=== PATIENT | male | born 1985 | race Hispanic/Latino ===

== ENCOUNTER 2018-08-20 08:43 | Inpatient (IN) | payer SELFPAY ==
[~2018-08-20] VITALS: Ht 190.5 cm; Wt 206.9 kg
[2018-08-20] MEDS ORDERED: SODIUM CHLORIDE 0.9% 1000ML 1,000 ML IV ONE (08:58)
[2018-08-20 09:07] LABS: BASOPHILS % (AUTO) 0.3 % (0.0-5.0); EOSINOPHILS % (AUTO) 0.1 % (0.0-8.0); HEMATOCRIT 44.8 % (42-54); LYMPHOCYTES % (AUTO) 5.1 % (21.0-51.0); MEAN CORPUSCULAR HEMOGLOBIN 31.5 pg (27.0-33.0); MEAN CORPUSCULAR HGB CONC 34.6 g/dL (32.0-36.0); MEAN CORPUSCULAR VOLUME 91.1 fL (79-99); MONOCYTES % (AUTO) 7.5 % (3.0-13.0); PLATELET COUNT (AUTO) 207 K/uL (130-400); RED BLOOD CELL COUNT(AUTO) 4.92 MIL/uL (4.50-6.20); RED CELL DISTRIBUTION WIDTH 13.9 % (11.0-15.5); WHITE BLOOD COUNT (AUTO) 16.5 K/uL (4.8-10.8)
[2018-08-20 09:15] LABS: CREATININE 1.1 mg/dL (0.5-1.5); POTASSIUM 3.6 mmol/L (3.5-5.1)
[2018-08-20 09:20] LABS: ALBUMIN 3.6 g/dL (3.5-5.0); BILIRUBIN,TOTAL 0.9 mg/dL (0.2-1.0); TOTAL PROTEIN, SERUM 7.9 g/dL (6.0-8.3)
[2018-08-20 09:22] LABS: INR 1.15 (0.85-1.15); PARTIAL THROMBOPLASTIN TIME 31.7 SEC (26.3-35.5)
[2018-08-20] MEDS ORDERED: IOHEXOL 350 MG/ML 100ML INFUS..BTL IV ONE (09:25)
[2018-08-20] MEDS ORDERED: AZITHROMYCIN 500MG+NS 250ML 250 ML IV ONE (09:33)
[2018-08-20] MEDS ORDERED: ACETAMINOPHEN EXTRA STRENGTH 500 MG TABLET ONE (09:57)
[2018-08-20 10:19] LABS: APPEARANCE,URINE Clear (CLEAR); BILIRUBIN,URINE Negative (NEGATIVE); COLOR,URINE Yellow (YELLOW); GLUCOSE, URINE (UA) Negative (NEGATIVE); KETONES,URINE Trace mg/dL (NEGATIVE); LEUKOCYTE ESTERASE ,URINE Trace (NEGATIVE); NITRATE,URINE Negative (NEGATIVE); OCCULT BLOOD,URINE Negative (NEGATIVE); PROTEIN,URINE Negative (NEGATIVE)
[2018-08-20 10:22] LABS: AMPHET/METH SCREEN,URINE NEGATIVE (NEGATIVE); BARBITURATE SCREEN, URINE NEGATIVE (NEGATIVE); BENZODIAZEPINES SCREEN,URINE NEGATIVE (NEGATIVE); CANNABINOID SCREEN,URINE NEGATIVE (NEGATIVE); COCAINE SCREEN,URINE NEGATIVE (NEGATIVE); OPIATE SCREEN,URINE NEGATIVE (NEGATIVE); PHENCYCLIDINE SCREEN,URINE NEGATIVE (NEGATIVE)
[2018-08-20 10:35] LABS: BACTERIA,URINE Rare /HPF (None Seen); MUCUS,URINE Rare LPF (None Seen); RBC,URINE None Seen /HPF (0-1); SQUAMOUS EPITHELIAL CELL,UR Rare /HPF (0-2); WBC,URINE 0-1 /HPF (0-1)
[2018-08-20] MEDS ORDERED: CEFTRIAXONE SODIUM 2 GM VIAL IVP SCH (11:30)
[2018-08-20] MEDS: INSULIN R PO SS1 SQ SCH ×3 (11:30→20:46)
[2018-08-20] MEDS ORDERED: MORPHINE SULFATE 2 MG/ML 1ML SYG IVP PRN (11:30)
[2018-08-20] MEDS ORDERED: LABETALOL HCL 5 MG/ML 20ML VIAL IV PRN (11:30)
[2018-08-20] MEDS ORDERED: ONDANSETRON HCL 4 MG/2 ML VIAL IVP PRN (11:30)
[2018-08-20] MEDS: SODIUM CHLORIDE 0.9% 1000ML 1,000 ML IV SCH ×2 (11:30→23:43)
[2018-08-20 12:30] VITALS: BP 119/70
[2018-08-20] MEDS: ACETAMINOPHEN 325 MG TAB PO PRN ×2 (14:07→22:09)
[2018-08-20] MEDS: LEVOFLOXACIN 750 MG/D5W 150 ML 150 ML IV SCH (16:21)
[2018-08-20 16:57] VITALS: BP 123/70
[2018-08-20] MEDS: HYDROCODONE/ACETAMINOPHEN 5/325 MG TAB PO PRN (17:26)
[2018-08-20 19:35] VITALS: BP 118/65
[2018-08-20] MEDS: ENOXAPARIN SODIUM 40 MG/0.4 ML SYRINGE SQ SCH (20:09)
[2018-08-20 23:39] VITALS: BP 120/59
[2018-08-21 04:02] VITALS: BP 103/62
[2018-08-21] MEDS: INSULIN R PO SS1 SQ SCH ×4 (05:44→20:28)
[2018-08-21] MEDS: HYDROCODONE/ACETAMINOPHEN 5/325 MG TAB PO PRN ×2 (05:57→16:20)
[2018-08-21 06:06] LABS: HEMATOCRIT 42.7 % (42-54); PLATELET COUNT (AUTO) 147 K/uL (130-400); RED CELL DISTRIBUTION WIDTH 14.2 % (11.0-15.5); WHITE BLOOD COUNT (AUTO) 10.1 K/uL (4.8-10.8)
[2018-08-21 06:17] LABS: POTASSIUM 3.3 mmol/L (3.5-5.1)
[2018-08-21 08:20] VITALS: BP 118/77
[2018-08-21] MEDS: PANTOPRAZOLE SODIUM 40 MG TABLET.DR PO SCH (09:28)
[2018-08-21] MEDS: ENOXAPARIN SODIUM 40 MG/0.4 ML SYRINGE SQ SCH ×2 (09:28→20:19)
[2018-08-21 11:55] VITALS: BP 128/69
[2018-08-21] MEDS: IPRATROPIUM/ALBUTEROL SULFATE 3 ML SOLUTION IH SCH ×3 (11:59→23:03)
[2018-08-21] MEDS: LEVOFLOXACIN 750 MG/D5W 150 ML 150 ML IV SCH (12:11)
[2018-08-21] MEDS ORDERED: COMPOUND IV REFRIGERATED 1 EACH IVSOLN MISC PRN (14:00)
[2018-08-21] MEDS ORDERED: VANCOMYCIN PROTOCOL PER PHARMACY IV SCH (14:00)
[2018-08-21] MEDS: ZOSYN 3.375GM+NS 50ML 50 ML IV SCH ×2 (14:21→21:57)
[2018-08-21] MEDS: VANCOMYCIN 2 GM in SODIUM CHLORIDE 0.9% 500ML 500 ML IV SCH ×2 (14:22→21:48)
[2018-08-21 16:44] VITALS: BP 136/71
[2018-08-21 20:00] VITALS: BP 135/73
[2018-08-22] VITALS: BP 122/68
[2018-08-22] MEDS: SODIUM CHLORIDE 0.9% 1000ML 1,000 ML IV SCH ×3 (00:08→15:23)
[2018-08-22] MEDS: HYDROCODONE/ACETAMINOPHEN 5/325 MG TAB PO PRN ×2 (00:08→10:42)
[2018-08-22 03:41] VITALS: BP 107/69
[2018-08-22 04:54] LABS: BASOPHILS % (AUTO) 0.9 % (0.0-5.0); EOSINOPHILS % (AUTO) 0.7 % (0.0-8.0); HEMATOCRIT 41.3 % (42-54); LYMPHOCYTES % (AUTO) 24.9 % (21.0-51.0); MEAN CORPUSCULAR HEMOGLOBIN 31.5 pg (27.0-33.0); MEAN CORPUSCULAR HGB CONC 34.6 g/dL (32.0-36.0); MEAN CORPUSCULAR VOLUME 90.9 fL (79-99); MONOCYTES % (AUTO) 13.1 % (3.0-13.0); NEUTROPHILS % (AUTO) 60.4 % (40.0-77.0); PLATELET COUNT (AUTO) 167 K/uL (130-400); RED BLOOD CELL COUNT(AUTO) 4.54 MIL/uL (4.50-6.20); RED CELL DISTRIBUTION WIDTH 14.3 % (11.0-15.5); WHITE BLOOD COUNT (AUTO) 7.4 K/uL (4.8-10.8)
[2018-08-22 05:02] LABS: HEMOGLOBIN A1C 5.9 % (4.0-6.0)
[2018-08-22 05:14] LABS: ALBUMIN 2.8 g/dL (3.5-5.0); BILIRUBIN,TOTAL 0.4 mg/dL (0.2-1.0); CREATININE 1.1 mg/dL (0.5-1.5); MAGNESIUM 1.9 mg/dL (1.80-2.40); PHOSPHORUS 3.1 mg/dL (2.5-4.9); POTASSIUM 3.5 mmol/L (3.5-5.1); THYROID STIMULATING HORMONE 2.04 uIU/mL (0.36-3.74); TOTAL PROTEIN, SERUM 6.9 g/dL (6.0-8.3)
[2018-08-22 05:16] LABS: INR 1.04 (0.85-1.15); PROTHROMBIN TIME 10.9 SEC (9.6-11.6)
[2018-08-22] MEDS: INSULIN R PO SS1 SQ SCH ×4 (05:46→21:00)
[2018-08-22] MEDS: ZOSYN 3.375GM+NS 50ML 50 ML IV SCH ×3 (05:50→21:10)
[2018-08-22] MEDS: IPRATROPIUM/ALBUTEROL SULFATE 3 ML SOLUTION IH SCH ×4 (06:01→23:17)
[2018-08-22 08:18] VITALS: BP 118/68
[2018-08-22] MEDS: ENOXAPARIN SODIUM 40 MG/0.4 ML SYRINGE SQ SCH ×2 (09:16→21:12)
[2018-08-22] MEDS: PANTOPRAZOLE SODIUM 40 MG TABLET.DR PO SCH (09:16)
[2018-08-22 12:29] VITALS: BP 133/75
[2018-08-22] MEDS: CLINDAMYCIN 600 MG/D5% WATER 50 ML IV SCH ×2 (13:15→21:10)
[2018-08-22] MEDS ORDERED: IOHEXOL 350 MG/ML 100ML INFUS..BTL IV ONE (14:25)
[2018-08-22] MEDS: ACETAMINOPHEN 325 MG TAB PO PRN (15:23)
[2018-08-22 17:09] VITALS: BP 134/66
[2018-08-22 20:00] VITALS: BP 132/74
[2018-08-23] VITALS (7 sets, daily range): BP systolic 116–122; BP diastolic 61–70
[2018-08-23] MEDS: CLINDAMYCIN 600 MG/D5% WATER 50 ML IV SCH ×3 (04:10→20:13)
[2018-08-23 04:39] LABS: EOSINOPHILS % (AUTO) 2.1 % (0.0-8.0); HEMATOCRIT 39.8 % (42-54); LYMPHOCYTES % (AUTO) 25.5 % (21.0-51.0); MEAN CORPUSCULAR VOLUME 91.3 fL (79-99); MONOCYTES % (AUTO) 13.5 % (3.0-13.0); NEUTROPHILS % (AUTO) 57.9 % (40.0-77.0); PLATELET COUNT (AUTO) 188 K/uL (130-400); RED BLOOD CELL COUNT(AUTO) 4.36 MIL/uL (4.50-6.20); RED CELL DISTRIBUTION WIDTH 14.2 % (11.0-15.5); WHITE BLOOD COUNT (AUTO) 6.2 K/uL (4.8-10.8)
[2018-08-23] MEDS: ZOSYN 3.375GM+NS 50ML 50 ML IV SCH ×3 (05:07→22:53)
[2018-08-23] MEDS: SODIUM CHLORIDE 0.9% 1000ML 1,000 ML IV SCH ×2 (05:07→18:39)
[2018-08-23 05:13] LABS: ALBUMIN 2.8 g/dL (3.5-5.0); BILIRUBIN,TOTAL 0.3 mg/dL (0.2-1.0); CREATININE 0.9 mg/dL (0.5-1.5); MAGNESIUM 2.1 mg/dL (1.80-2.40); PHOSPHORUS 3.6 mg/dL (2.5-4.9); POTASSIUM 3.8 mmol/L (3.5-5.1)
[2018-08-23] MEDS: INSULIN R PO SS1 SQ SCH ×2 (06:19→11:30)
[2018-08-23] MEDS: IPRATROPIUM/ALBUTEROL SULFATE 3 ML SOLUTION IH SCH ×4 (06:29→23:32)
[2018-08-23] MEDS: PANTOPRAZOLE SODIUM 40 MG TABLET.DR PO SCH (09:43)
[2018-08-23] MEDS: ENOXAPARIN SODIUM 40 MG/0.4 ML SYRINGE SQ SCH ×2 (09:45→20:14)
[2018-08-23] MEDS: KETOCONAZOLE 15 GM CREAM.GM. TP SCH ×2 (09:48→20:14)
[2018-08-23] MEDS ORDERED: ZOLPIDEM TARTRATE 5 MG TAB PO PRN (14:45)
[2018-08-24 04:00] VITALS: BP 132/67
[2018-08-24] MEDS: CLINDAMYCIN 600 MG/D5% WATER 50 ML IV SCH ×2 (05:41→12:30)
[2018-08-24] MEDS: IPRATROPIUM/ALBUTEROL SULFATE 3 ML SOLUTION IH SCH ×2 (06:37→11:18)
[2018-08-24] MEDS: ZOSYN 3.375GM+NS 50ML 50 ML IV SCH ×2 (06:56→13:34)
[2018-08-24] MEDS: SODIUM CHLORIDE 0.9% 1000ML 1,000 ML IV SCH (07:50)
[2018-08-24 08:09] VITALS: BP 115/67
[2018-08-24] MEDS: PANTOPRAZOLE SODIUM 40 MG TABLET.DR PO SCH (08:37)
[2018-08-24] MEDS: ENOXAPARIN SODIUM 40 MG/0.4 ML SYRINGE SQ SCH (08:38)
[2018-08-24] MEDS: KETOCONAZOLE 15 GM CREAM.GM. TP SCH (08:39)
[2018-08-24 12:02] VITALS: BP 122/64
[2018-08-24 15:46] VITALS: BP 129/67
== END 2018-08-24 16:00 | disposition home or self-care (01) | DRG 602 ==
LOC: EDH 08:43 → OBSVTOIN 08:44 → 3AH 08:44
PROVIDERS: ADMIT Internal Medicine Critical Care Medicine; ATTEND Internal Medicine Critical Care Medicine
DX: L03.116 Cellulitis of left lower limb (principal); J18.9 Pneumonia, unspecified organism; Z68.43 Body mass index [BMI] 50.0-59.9, adult; L03.115 Cellulitis of right lower limb; G47.33 Obstructive sleep apnea (adult) (pediatric); E66.01 Morbid (severe) obesity due to excess calories; B35.3 Tinea pedis; E11.9 Type 2 diabetes mellitus without complications; E88.81 Metabolic syndrome and other insulin resistance
CPT/HCPCS: 36415; 70450; 71045; 71275; 73702; 80048; 80053; 80061; 80305; 81001; 82550; 82948; 83036; 83605; 83735; 84100; 84439; 84443; 84484; 85025; 85027; 85378; 85610; 85730; 87040; 87804; 87880; 93005; 93970; 94640; 94664; A4218; G0008; J0456; J0696; J1650; J1956; J2543; J3370; J3490; J7030; J7040; Q2038; Q9967

== ENCOUNTER 2020-08-24 19:59 | Emergency (ER) | payer OTHER | END 2020-08-24 20:54 | disposition left against medical advice (07) | LOC: EDH 19:59 | DX: B37.42 Candidal balanitis (principal) | CPT/HCPCS: 99281 ==

== ENCOUNTER 2020-12-30 14:18 | Emergency (ER) | payer BC, OTHER ==
[2020-12-30] MEDS ORDERED: AZITHROMYCIN 500MG+NS 250ML 250 ML IV ONE (15:02)
[2020-12-30] MEDS ORDERED: ASPIRIN 325 MG TABLET ONE (15:02)
[2020-12-30] MEDS ORDERED: CEFTRIAXONE SODIUM 1 GM ONE (15:02)
[2020-12-30] MEDS ORDERED: SODIUM CHLORIDE 0.9% 50 ML IV ONE (15:03)
[2020-12-30] MEDS ORDERED: SODIUM CHLORIDE 0.9% 1000ML 1,000 ML IV ONE (15:03)
[2020-12-30 15:46] LABS: BASOPHILS % (AUTO) 0.6 % (0.0-5.0); EOSINOPHILS % (AUTO) 1.5 % (0.0-8.0); HEMATOCRIT 44.9 % (42-54); LYMPHOCYTES % (AUTO) 24.3 % (21.0-51.0); MEAN CORPUSCULAR HEMOGLOBIN 29.5 pg (27.0-33.0); MEAN CORPUSCULAR HGB CONC 34.1 g/dL (32.0-36.0); MEAN CORPUSCULAR VOLUME 86.5 fL (79-99); MONOCYTES % (AUTO) 11.9 % (3.0-13.0); NEUTROPHILS % (AUTO) 61.2 % (40.0-77.0); PLATELET COUNT (AUTO) 312 K/uL (130-400); RED BLOOD CELL COUNT(AUTO) 5.19 MIL/uL (4.50-6.20); WHITE BLOOD COUNT (AUTO) 6.5 K/uL (4.8-10.8)
[2020-12-30 16:02] LABS: INR 1.1 (0.85-1.15); PROTHROMBIN TIME 11.9 SEC (9.6-11.6)
[2020-12-30 16:03] LABS: PARTIAL THROMBOPLASTIN TIME 26.2 SEC (26.3-35.5)
[2020-12-30 16:09] LABS: BILIRUBIN,TOTAL 0.6 mg/dL (0.2-1.0); TOTAL PROTEIN, SERUM 7.2 g/dL (6.0-8.3)
[2020-12-30 16:44] LABS: ABG BASE EXCESS 2.9 mmol/L (-2.0-3.0); ABG HCO3 27.6 mmol/L (21.0-28.0); ABG OXYGEN SATURATION 97.1 % (95.0-99.0); ABG PCO2 43 mmHg (35-48)
== END 2020-12-30 17:58 | disposition home or self-care (01) ==
LOC: EDH 14:18
DX: U07.1 COVID-19 (principal); J12.82 Pneumonia due to coronavirus disease 2019
CPT/HCPCS: 36415; 36600; 71045; 80053; 82550; 82803; 83605; 84145; 84484; 85025; 85610; 85730; 87040 ×2; 87426; 93005; 94760 ×2; 96365; 96368; 99285; J0456; J0696; J7030

== ENCOUNTER 2021-09-20 10:40 | Emergency (ER) | payer BC, OTHER ==
[~2021-09-20] VITALS: Ht 190.5 cm; Wt 190.5 kg
[2021-09-20] MEDS ORDERED: CLINDAMYCIN IVPB 600MG/50ML 50 ML IV SCH (12:30)
[2021-09-20] MEDS ORDERED: HYDROCODONE/ACETAMINOPHEN 10/325 MG TAB PO SCH (12:30)
[2021-09-20 12:42] LABS: BASOPHILS % (AUTO) 0.4 % (0.0-5.0); EOSINOPHILS % (AUTO) 0.5 % (0.0-8.0); HEMATOCRIT 42.6 % (42-54); LYMPHOCYTES % (AUTO) 30.5 % (21.0-51.0); MEAN CORPUSCULAR HEMOGLOBIN 30.4 pg (27.0-33.0); MEAN CORPUSCULAR HGB CONC 34.5 g/dL (32.0-36.0); NEUTROPHILS % (AUTO) 54.4 % (40.0-77.0); PLATELET COUNT (AUTO) 221 K/uL (130-400); RED BLOOD CELL COUNT(AUTO) 4.84 MIL/uL (4.50-6.20); WHITE BLOOD COUNT (AUTO) 8.1 K/uL (4.8-10.8)
[2021-09-20 13:01] LABS: ALBUMIN 3.2 g/dL (3.5-5.0); BILIRUBIN,TOTAL 0.5 mg/dL (0.2-1.0); CREATININE 0.9 mg/dL (0.5-1.5); CRP QUANTITATIVE 102.4 mg/L (0.00-9.0); POTASSIUM 3.8 mmol/L (3.5-5.1); TOTAL PROTEIN, SERUM 7.2 g/dL (6.0-8.3)
[2021-09-20 13:12] LABS: B-TYPE NATRIURETIC PEPTIDE 12 pg/mL (0-100)
[2021-09-20 13:55] LABS: APPEARANCE,URINE Clear (CLEAR); BILIRUBIN,URINE Negative (NEGATIVE); COLOR,URINE Yellow (YELLOW); GLUCOSE, URINE (UA) Negative (NEGATIVE); KETONES,URINE Negative (NEGATIVE); LEUKOCYTE ESTERASE ,URINE Negative (NEGATIVE); NITRATE,URINE Negative (NEGATIVE); OCCULT BLOOD,URINE Negative (NEGATIVE); PH,URINE 5.5 (5.0-8.0); PROTEIN,URINE Negative (NEGATIVE)
[2021-09-20] MEDS ORDERED: CLIN-141 PO (13:59)
[2021-09-20] MEDS ORDERED: ACET-2247 PO (13:59)
[2021-09-20 14:35] VITALS: BP 111/69
== END 2021-09-20 14:37 | disposition home or self-care (01) ==
LOC: EDH 10:40
DX: L03.116 Cellulitis of left lower limb (principal); R03.0 Elevated blood-pressure reading, without diagnosis of hypertension; E11.9 Type 2 diabetes mellitus without complications; E66.9 Obesity, unspecified; Z88.1 Allergy status to other antibiotic agents; Z79.899 Other long term (current) drug therapy; Z68.43 Body mass index [BMI] 50.0-59.9, adult
CPT/HCPCS: 36415; 71045; 80053; 81003; 83605; 83880; 84484; 85025; 86140; 87040 ×2; 93005; 93971; 96365; 99285; J3490

== ENCOUNTER 2024-08-07 11:30 | Emergency (ER) | payer SELFPAY ==
[~2024-08-07] VITALS: Ht 190.5 cm; Wt 185.7 kg
[~2024-08-07 11:30] MED LIST: ACET-2247 PO; CLIN-141 PO
[2024-08-07 13:03] LABS: BASOPHILS # (AUTO) 0.05 K/uL (0.00-0.20); BASOPHILS % (AUTO) 0.6 % (0.0-5.0); EOSINOPHILS # (AUTO) 0.11 K/uL (0.00-0.70); EOSINOPHILS % (AUTO) 1.4 % (0.0-8.0); HEMATOCRIT 49.6 % (42-54); IMMATURE GRANULOCYTE ABSOLUTE 0.02 K/uL (0-1); LYMPHOCYTES # (AUTO) 2.5 K/uL (1.0-4.8); LYMPHOCYTES % (AUTO) 32.4 % (21.0-51.0); MEAN CORPUSCULAR HEMOGLOBIN 30.6 pg (27.0-33.0); MEAN CORPUSCULAR HGB CONC 34.9 g/dL (32.0-36.0); MEAN CORPUSCULAR VOLUME 87.6 fL (79-99); MONOCYTES # (AUTO) 0.7 K/uL (0.1-1.0); MONOCYTES % (AUTO) 8.5 % (3.0-13.0); NEUTROPHILS # (AUTO) 4.4 K/uL (1.8-7.7); NEUTROPHILS % (AUTO) 56.8 % (40.0-77.0); PLATELET COUNT (AUTO) 222 K/uL (130-400); RED BLOOD CELL COUNT(AUTO) 5.66 MIL/uL (4.50-6.20); WHITE BLOOD COUNT (AUTO) 7.8 K/uL (4.8-10.8)
[2024-08-07 13:10] LABS: CREATININE 1.1 mg/dL (0.5-1.3)
[2024-08-07] MEDS: 0.9%NACL 1000ML 1,000 ML IV ONE (13:54)
[2024-08-07] MEDS: INSULIN humuLIN R 100 UNIT/ML 3ML IV ONE (13:54)
[2024-08-07 14:13] VITALS: BP 130/80; PULSE 85; RESP 16; TEMP 98.3; O2SAT 99
[2024-08-07 16:22] LABS: APPEARANCE,URINE HAZY (CLEAR); BILIRUBIN,URINE NEGATIVE (NEGATIVE); COLOR,URINE YELLOW (YELLOW); GLUCOSE, URINE (UA) >=1000 mg/dL (NEGATIVE); KETONES,URINE NEGATIVE (NEGATIVE); LEUKOCYTE ESTERASE ,URINE TRACE Leu/uL (NEGATIVE); NITRATE,URINE NEGATIVE (NEGATIVE); OCCULT BLOOD,URINE NEGATIVE (NEGATIVE); PH,URINE 5.5 (5.0-8.0); PROTEIN,URINE TRACE mg/dL (NEGATIVE); UROBILINOGEN,URINE 0.2 mg/dL (0.2-1.0)
[2024-08-07 16:27] LABS: BACTERIA,URINE Few /HPF (None Seen); MUCUS,URINE Few LPF (None Seen); RBC,URINE None Seen /HPF (0-1)
== END 2024-08-07 16:39 | disposition home or self-care (01) ==
LOC: EDH 11:30
DX: E11.65 Type 2 diabetes mellitus with hyperglycemia (principal); E66.9 Obesity, unspecified; Z68.43 Body mass index [BMI] 50.0-59.9, adult
CPT/HCPCS: 99283; 96374; 96361; 80048; 85025; 87086 ×2; 87186; 82948 ×2; 81001; 36415; J1815; J7030